=== PATIENT | female | born 1970 | race African-American/Black ===

== ENCOUNTER 2018-06-24 12:18 | Emergency (ER) | payer SELFPAY ==
[~2018-06-24] VITALS: Ht 154.9 cm; Wt 82.0 kg
[2018-06-24 14:15] VITALS: BP 109/50
[2018-06-24] MEDS ORDERED: ONDANSETRON 4MG ODT PO ONE (14:15)
[2018-06-24 14:28] LABS: CLARITY URINE CLOUDY (CLEAR); COLOR URINE YELLOW (YELLOW); KETONES URINE NEGATIVE (NEGATIVE); LEUKOCYTE ESTERASE URINE 2+ (NEGATIVE); NITRITE URINE POSITIVE (NEGATIVE); OCCULT BLOOD URINE NEGATIVE (NEGATIVE); PROTEIN URINE TRACE (NEGATIVE); SPECIFIC GRAVITY URINE 1.024 (1.005-1.030)
[2018-06-24] MEDS ORDERED: LEVOFLOXACIN 500MG TABLET PO ONE (14:45)
== END 2018-06-24 15:38 | disposition home or self-care (01) ==
LOC: ER 13:05
DX: N39.0 Urinary tract infection, site not specified (principal); Z98.890 Other specified postprocedural states
CPT/HCPCS: 81003; 81025; 87077; 87086; 87186; 99283; Q0162

== ENCOUNTER 2018-08-06 15:45 | Emergency (ER) | payer SELFPAY ==
[~2018-08-06] VITALS: Ht 154.9 cm; Wt 64.0 kg
[2018-08-06] MEDS ORDERED: KETOROLAC 60MG/2ML VIAL IM STA (16:50)
[2018-08-06 17:08] VITALS: BP 109/52
== END 2018-08-06 17:27 | disposition home or self-care (01) ==
LOC: ER 15:45
DX: K02.9 Dental caries, unspecified (principal); K14.0 Glossitis; R07.0 Pain in throat
CPT/HCPCS: 96372; 99283; J1885